=== PATIENT | female | born 1945 | race Asian ===

== ENCOUNTER → 2018-06-22 | Outpatient (CLI) | payer MEDICARE, OTHER ==
[~2018-06-22] MED LIST: AMLO10TA55 PO; ASPI-449 PO; LOVA-74 PO; METO-391 PO; OLME40TA8 PO; RANI150C4 PO
[2018-06-22 11:57] LABS: BASOPHILS % (AUTO) 0.8 % (0.0-2.0); EOSINOPHILS % (AUTO) 0.9 % (1.0-6.0); HEMATOCRIT 39.9 % (36-46); HEMOGLOBIN 13.8 g/dL (12.0-16.0); LYMPHOCYTES # (AUTO) 2.2 K/uL (1.0-4.8); LYMPHOCYTES % (AUTO) 37.3 % (22.0-44.0); MEAN CORPUSCULAR HEMOGLOBIN 30.1 pg (26.0-34.0); MEAN CORPUSCULAR HGB CONC 34.6 G/dL (31.0-37.0); MEAN CORPUSCULAR VOLUME 87 fL (80-100); MONOCYTES # (AUTO) 0.4 K/uL (0.1-1.0); MONOCYTES % (AUTO) 7.4 % (2.0-9.0); NEUTROPHILS # (AUTO) 3.2 K/uL (1.8-7.7); NEUTROPHILS % (AUTO) 53.6 % (40.0-70.0); PLATELET COUNT (AUTO) 326 K/uL (150-450); RED BLOOD CELL COUNT(AUTO) 4.59 MIL/uL (4.00-5.20)
== END | disposition home or self-care (01) ==
LOC: MSR 09:32
PROVIDERS: ATTEND Internal Medicine
DX: I51.7 Cardiomegaly (principal); E78.5 Hyperlipidemia, unspecified; R73.09 Other abnormal glucose; Z87.898 Personal history of other specified conditions
CPT/HCPCS: 83036